=== PATIENT | female | born 1990 | race Caucasian/White ===

== ENCOUNTER 2024-10-04 18:07 | Emergency (ER) | payer OTHER, SELFPAY ==
--- NOTE | ~2024-10-04 | CT_ITS ---
CLINICAL HISTORY: diziness CT head without contrast Comparison: None Findings: No intra-axial mass, midline shift, hydrocephalus, or acute hemorrhage. No significant atrophy-like change or white matter disease. There is no sinus or mastoid fluid. The orbits are unremarkable. There is no acute fracture. IMPRESSION: 1. No acute intracranial findings. This document has been electronically signed by: Kimani Red MD on 10/04/2024 20:02:00
--- NOTE | ~2024-10-04 | XR_ITS ---
CLINICAL HISTORY: SOB. Pneumonia? 1 view chest x-ray. Comparison: None Findings: The lungs are adequately expanded. No focal consolidation. No effusion or pneumothorax. Cardiac and mediastinal contours are within normal limits. No acute osseous abnormality Impression: No acute process. This document has been electronically signed by: Kimani Red MD on 10/04/2024 19:31:18
[2024-10-04 18:28] VITALS: BP 117/70; PULSE 68; RESP 16; TEMP 36.9; O2SAT 100; BMI 26.6
--- NOTE | 2024-10-04 18:34 | ECG_ITS ---
Test Reason : DIZZINESS Blood Pressure : */* mmHG Vent. Rate : 71 BPM Atrial Rate : 71 BPM P-R Int : 172 ms QRS Dur : 108 ms QT Int : 406 ms P-R-T Axes : 78 94 51 degrees QTcB Int : 441 ms Normal sinus rhythm Possible Left atrial enlargement Rightward axis Incomplete right bundle branch block Borderline ECG When compared with ECG of 11-Oct-2019 23:04, No significant change was found Referred By: Paras Canchola Electronically Signed By: Jus Quinn
--- NOTE | 2024-10-04 18:36 | ED_ITS ---
HPI - General Adult General Chief complaint: Dizziness Stated complaint: dizziness,sob Time Seen by Provider: 10/04/24 23:27 Source: patient Limitations: no limitations History of Present Illness ED Provider: Lucia Martinez PA-C HPI narrative: 33-year-old female with self report of anxiety over Health Care, presents with upper respiratory infection. Patient states she developed sinus pain and pressure, primarily right-sided, September 24. This past weekend, she was placed on antibiotics; she is on day 4 . Patient states she has been feeling intermittently dizzy as if she has ?brain fog?. Patient also states that is she having shortness of breath with minimal activity. Patient states she was singing, she had to stop to take a deep breath. Denies cough or cold symptoms or wheezing. Denies hemoptysis, unilateral calf pain or swelling, recent travel, recent surgery, use of hormonal replacement, no active cancer history. Patient states she was seen at urgent Care, they advised her to come to the emergency department to rule out ?a brain tumor and vertigo . Related Data Allergies Allergy/AdvReac Type Severity Reaction Status Date / Time No Known Allergies Allergy Verified 10/04/24 18:31 Review of Systems Review of Systems: Yes all other systems are reviewed and are negative Constitutional: Constitutional: Reports fatigue, Denies fever(s), Reports headache(s) and Reports malaise ENT: Reports dizziness, Reports headache(s), Reports nasal congestion, Reports sinus pain and Reports sinus pressure Cardiovascular: Cardiovascular: Denies chest pain and Reports dyspnea Respiratory: Respiratory: Denies cough, Reports dyspnea and Denies wheezing Gastrointestinal: Gastrointestinal: Denies nausea and Denies vomiting Neurologic: Reports dizziness and Reports headache(s) Endocrine: Endocrine: Reports fatigue Allergic/Immunologic: Allergic/Immunologic: Denies wheezing PMFSH Past Medical History Attestation statement: The following information was validated with the patient. Social History Social History Smoked in Last 30 Days: No Use of substances other than those prescribed or required for medical reasons: No Advance Directives: No Advance Directives Information Provided: No Do you have a plan to hurt others: No Plan Patient : No Physical Exam ED Vital Signs: Vital Signs - 24 hr 10/04/24 18:28 10/04/24 21:54 10/05/24 00:02 Temperature 98.5 F 98.3 F 98.5 F Pulse Rate 68 77 78 Respiratory Rate 16 16 20 Blood Pressure 117/70 122/77 114/66 Pulse Oximetry 100 100 99 Oxygen Delivery Method Room Air Room Air 10/05/24 01:12 Temperature 98.5 F Pulse Rate 78 Respiratory Rate 20 Blood Pressure 114/66 Pulse Oximetry 99 Oxygen Delivery Method Room Air BMI result Body Mass Index 26.6 Const Other: Alert well-appearing Orientation/consciousness: patient oriented x3 HENMT Other: Bilateral TMs are dull, no tragal tenderness bilaterally, some cerumen noted, no erythema or exudate noted in external ear canals Eyes Other: No nystagmus on exam Resp Other: Lungs clear to auscultation, nonlabored respirations, no wheezing Cardio Other: Normal peripheral perfusion Skin Other: Warm dry no rash Neuro Other: No ataxia General: patient oriented x3, gait normal, no focal motor deficits and CN's II- XI intact bilaterally Psych Other: Cooperative, very anxious Course Course Course Narrative: RME: 33-year-old female presents to ED for dizziness, brain fog, and shortness of breath since last week. Patient denies any chest pain or coughing up blood. Patient denies any slurred speech, facial droop or paralysis of extremities. NIH score is 0. Patient well-appearing. We will do EKG labs head CT scan. Medical Decision Making Medical Decision Making MDM Narrative: 33-year-old female with self report of anxiety over Health Care, presents with upper respiratory infection. Patient states she developed sinus pain and pressure, primarily right-sided, September 24. This past weekend, she was placed on antibiotics; she is on day 4 of . Patient states she has been feeling int ermittently dizzy as if she has ?brain fog?. Patient also states that is she having shortness of breath with minimal activity. Patient states she was singing, she had to stop to take a deep breath. Denies cough or cold symptoms or wheezing. Denies hemoptysis, unilateral calf pain or swelling, recent travel, recent surgery, use of hormonal replacement, no active cancer history. Patient states she was seen at urgent Care, they advised her to come to the emergency department to rule out ?a brain tumor and vertigo . Problem: Anxiety over healthcare History: Per patient I have considered the following differential diagnoses: Sinusitis, labyrinthitis, asthma exacerbation, bronchitis, pneumonia, PE Plan: Patient here with a wide range of symptoms. In regard to the headache and dizziness, the patient is congested, she is being treated for sinusitis, and there was evidence of fluid within the inner ears. CT scan was ordered from triage, it was unremarkable. She also has no evidence of acute sinusitis. I relayed these findings to the patient, she is just simply congested. This congestion would also account for her dizziness, I explained that the structures of the inner ear play a role in 1 of our balance mechanisms. In regard to her shortness of breath, it was highly subjective. She does not feel chest tightness, her lungs are clear to auscultation, there was no wheezing, to suggest asthma exacerbation. The chest x-ray obtained was negative. Technically she is PERC negative, she insists she is SOB with minimal activity. We will add a dimer. I have independently reviewed the following tests: Labs: Trop negative, viral panel negative, dimer neg EKG: Normal sinus rhythm, rate of 71, incomplete right bundle, no ischemic changes no ectopy no change from prior study QTC 441 CT brain: Findings: No intra-axial mass, midline shift, hydrocephalus, or acute hemorrhage. No significant atrophy-like change or white matter disease. There is no sinus or mastoid fluid. The orbits are unremarkable. There is no acute fracture. IMPRESSION: 1. No acute intracranial findings. Chest x-ray:Findings: The lungs are adequately expanded. No focal consolidation. No effusion or pneumothorax. Cardiac and mediastinal contours are within normal limits. No acute osseous abnormality Impression: No acute process. Lab Data Labs: Lab Results 10/04/24 Range/Units 19:00 PT 12.2 (10.9-12.4) SEC INR 1.0 (0.9-1.1) APTT 32.1 (26.0-36.8) SEC D-Dimer High Sensitivty < 150 NG/ML Troponin I High Sens < 2.7 (<3.5-17.0) ng/L B-Natriuretic Peptide 12 (<100) pg/mL Influenza Type A (PCR) NEGATIVE (Negative) Influenza Type B (PCR) NEGATIVE (Negative) RSV RNA Qual (PCR) NEGATIVE (Negative) SARS-CoV-2 RNA (RT-PCR) NEGATIVE (Negative) Discharge Plan Discharge Clinical Impression: Sinusitis, Congestion of both ears Patient Disposition: Home, Self-Care Instructions: Sinusitis (ED) Additional Instructions: Continue your treatment for sinusitis. Today you were screened for influenza RSV and COVID, the viral panel was negative. The chest x-ray is clear you do not have pneumonia. The CT scan of your brain was completely normal, they also noted that you do not have significant sinus congestion. On exam, you were found to have fluid within the inner ears, this is the likely cause of your dizziness. The structures of the inner ear are 1 of our equilibrium mechanisms. When you have congestion, this can alter your balance mechanism, causing dizziness at times. You could try [id number] Zyrtec, take it daily, for the next several weeks, to help alleviate your residual sinus congestion and fluid within the inner ears. Cool mist humidification is also beneficial. You could also try [id number] nasal saline sprays, for any residual nasal congestion. Continue to follow up with your primary care provider as needed. Interventions: ED Discharge Assessment Last Done: 10/05/24 01:12 Discharge Date/Time: 10/05/24 01:17 Print Language: Bel[place]ian
[2024-10-04 19:11] LABS: Prothrombin Time 12.2 SEC (10.9-12.4)
[2024-10-04 19:14] LABS: Partial Thromboplastin Time 32.1 SEC (26.0-36.8)
[2024-10-04 19:28] LABS: B Type Natriuretic Peptide 12 pg/mL (<100); Troponin-I High Sensitivity < 2.7 ng/L (<3.5-17.0)
[2024-10-04 19:49] LABS: Influenza A PCR NEGATIVE (Negative); Influenza B PCR NEGATIVE (Negative); Resp Syncy Virus RNA Qual PCR NEGATIVE (Negative); SARS COV2 PCR INHOUSE NEGATIVE (Negative)
[2024-10-04 21:54] VITALS: BP 122/77; PULSE 77; RESP 16; TEMP 36.8; O2SAT 100
[2024-10-05 00:02] VITALS: BP 114/66; PULSE 78; RESP 20; TEMP 36.9; O2SAT 99
--- NOTE | 2024-10-05 00:04 | PC.NURSE ---
provider into assess pt. awaiting orders and disposition
[2024-10-05 00:26] LABS: D Dimer High Sensitivity < 150 NG/ML
--- NOTE | 2024-10-05 00:32 | PC.NURSE ---
Provider into assess pt, o2 ambulation walk test completed, result report to EMILY Addison, pt lowest O2 was 96 on RA. Lab collected and sent, awaiting results.
--- NOTE | 2024-10-05 01:10 | PC.NURSE ---
pt a&o, no sob or chest pain, Reviewed discharge instructions with pt. pt verbalized understanding. no sign of distress. pt ambulated with a steady gait.
[2024-10-05 01:12] VITALS: BP 114/66; PULSE 78; RESP 20; TEMP 36.9; O2SAT 99
== END 2024-10-05 01:17 | disposition home or self-care (01) ==
PROVIDERS: Physician Assistant; Physician Assistant Medical; Emergency Provider Internal Medicine
DX: H83.8X3 Other specified diseases of inner ear, bilateral (principal); J32.9 Chronic sinusitis, unspecified; R42 Dizziness and giddiness; R06.02 Shortness of breath; I45.10 Unspecified right bundle-branch block; Z03.818 Encounter for observation for suspected exposure to other biological agents ruled out; Z79.899 Other long term (current) drug therapy
CPT/HCPCS: 0241U; 70450; 71045; 83880; 84484; 85379; 85610; 85730; 93005; 99284; 99285

== ENCOUNTER → 2024-10-04 18:34 | Outpatient (BNV) | payer OTHER, SELFPAY | PROVIDERS: Visit Provider Radiology Vascular & Interventional Radiology | DX: R42 Dizziness and giddiness (principal); R06.02 Shortness of breath | CPT/HCPCS: 70450; 71045 ==

== ENCOUNTER → 2024-10-04 18:34 | Outpatient (BNV) | payer OTHER, SELFPAY | PROVIDERS: Emergency Provider Internal Medicine; Visit Provider Internal Medicine Cardiovascular Disease | DX: I45.10 Unspecified right bundle-branch block (principal) | CPT/HCPCS: 93010 ==